=== PATIENT | male | born 1995 | race American Indian/Alaskan Native ===

== ENCOUNTER 2019-03-27 16:51 | Inpatient (IN) | payer SELFPAY ==
--- NOTE | 2019-03-27 18:27 | Emergency Department Report ---
Blank Doc - Documentation Documentation: Hit big toes a couple months ago and was healing up but healing . Subsequent i njuries . No fever fever of chils. pain 5/10 with touch and movement H/O sleep apnea Denies diabetes Bilateral great toes with redness, swelling, change in color with open wounds. TTP. OBESE CBC, Xray.
--- NOTE | 2019-03-27 19:01 | XRay Report ---
BILATERAL FEET 6 VIEWS INDICATION / CLINICAL INFORMATION: Injury with bilateral great toe pain, swelling and wounds. COMPARISON: None available. FINDINGS: BONES / JOINT(S): No acute fracture or subluxation. There is mild spurring at the insertion of the Ac hilles tendon on the calcaneus bilaterally. SOFT TISSUES: There is soft tissue swelling involving both great toes, right greater than left. I do not identify a radiopaque foreign body or soft tissue gas. ADDITIONAL FINDINGS: None. Signer Name: Christian Hoff MD Signed: 03/27/2019 6:56 PM Workstation Name: [id number]
[2019-03-27 19:40] LABS: Basophils # (Auto) 0.1 K/mm3 (0.0-0.1); Basophils % (Auto) 0.5 % (0.0-1.8); Eosinophils % (Auto) 0.3 % (0.0-4.3); Hematocrit 42.2 % (35.5-45.6); Hemoglobin 13.8 gm/dl (11.8-15.2); Lymphocytes # (Auto) 3.1 K/mm3 (1.2-5.4); Mean Corpuscular HGB Conc 33 % (32-34); Mean Corpuscular Volume 79 fl (84-94); Monocytes % (Auto) 7.6 % (0.0-7.3); Platelet Count 361 K/mm3 (140-440); Red Blood Count 5.34 M/mm3 (3.65-5.03); Red Cell Distribution Width 14.5 % (13.2-15.2)
[2019-03-27 19:52] LABS: BUN/Creatinine Ratio 14; Blood Urea Nitrogen 10 mg/dL (9-20); Calcium 9.8 mg/dL (8.4-10.2); Hemolysis Index 66
[2019-03-27] MEDS ORDERED: NACL 0.9% 1000 ML 1,000 ML IV ONE (20:55)
[2019-03-27] MEDS ORDERED: CLEOCIN 900 MG/50 mL 900 MG/50 ML BAG IV ONE (20:55)
--- NOTE | 2019-03-27 21:28 | Emergency Department Report ---
ED Extremity Problem HPI - General Chief complaint: Extremity Injury, Lower Stated complaint: TOE PAIN Time Seen by Provider: 03/27/19 18:20 Source: patient Mode of arrival: Ambulatory Limitations: No Limitations - History of Present Illness Initial comments: Patient is a 23-year-old male who presents the emergency room with complaints of wounds to his bilateral big toes that began 6 months ago. He states initially he had it against a wall and it healed some but then he has stubbed his big toes again and now they are not healing. he states there has been increased drainage and smell to the big toes. The mother states that they have been living in a hotel and he has been keeping them covered so she does not know how long its been this bad. He denies any fever. He has never had this before. Denies any numbness, weakness. He states he is able to move the toes. denies any past medical history or history of diabetes. He states his father had diabetes. He denies any allergies to medications. He does not have a primary care doctor. - Related Data Allergies Allergy/AdvReac Type Severity Reaction Status Date / Time No Known Allergies Allergy Verified 03/27/19 16:57 ED Review of Systems ROS: Stated complaint: TOE PAIN Other details as noted in HPI Comment: All other systems reviewed and negative ED Past Medical Hx - Past Medical History Previous Medical History?: No - Surgical History Past Surgical History?: Yes Additional Surgical History: tonsillectomy. adenoidectomy - Social History Smoking Status: Never Smoker ED Physical Exam - General Limitations: No Limitations General appearance: alert, in no apparent distress - Head Head exam: Present: atraumatic, normocephalic - ENT ENT exam: Present: mucous membranes moist - Respiratory Respiratory exam: Present: normal lung sounds bilaterally. Absent: respiratory distress, wheezes, rales, rhonchi, stridor, chest wall tenderness, accessory muscle use, decreased breath sounds, prolonged expiratory - Cardiovascular Cardiovascular Exam: Present: regular rate, normal rhythm, normal heart sounds. Absent: systolic murmur, diastolic murmur, rubs, gallop - Neurological Exam Neurological exam: Present: alert, oriented X3 - Psychiatric Psychiatric exam: Present: normal affect, normal mood - Skin Skin exam: Present: other (edema, erythema, nail damage with fluctuant areas and serous drainage from the bilateral big toes, pt has FROM of the toes and foot, neurovascularly intact) ED Course Vital Signs 03/27/19 03/27/19 03/27/19 18:22 21:47 23:56 Temperature 97.9 F 98.7 F 98.5 F Pulse Rate 101 H 96 H 82 Respiratory 18 16 22 Rate Blood Pressure 145/85 Blood Pressure 156/101 127/69 [Left] O2 Sat by Pulse 98 100 98 Oximetry - Consultations Consultation #1: 03/27/19 21:[address] Yepez, hospitalist who will admit pt to the hospital and will accept and resume care of the patient ED Medical Decision Making - Lab Data Result diagrams: 03/27/19 19:22 03/27/19 19:22 Lab Results 03/27/19 03/27/19 Range/Units 19:22 19:22 WBC 13.4 H (4.5-11.0) K/mm3 RBC 5.34 H (3.65-5.03) M/mm3 Hgb 13.8 (11.8-15.2) gm/dl Hct 42.2 (35.5-45.6) % MCV 79 L (84-94) fl MCH 26 L (28-32) pg MCHC 33 (32-34) % RDW 14.5 (13.2-15.2) % Plt Count 361 (140-440) K/mm3 Lymph % (Auto) 23.0 (13.4-35.0) % [place] % (Auto) 7.6 H (0.0-7.3) % Eos % (Auto) 0.3 (0.0-4.3) % Baso % (Auto) 0.5 (0.0-1.8) % Lymph # 3.1 (1.2-5.4) K/mm3 [place] # 1.0 H (0.0-0.8) K/mm3 Eos # 0.0 (0.0-0.4) K/mm3 Baso # 0.1 (0.0-0.1) K/mm3 Seg Neutrophils % 68.6 (40.0-70.0) % Seg Neutrophils # 9.2 H (1.8-7.7) K/mm3 Sodium 134 L (137-145) mmol/L Potassium 4.4 (3.6-5.0) mmol/L Chloride 99.5 (98-107) mmol/L Carbon Dioxide 23 (22-30) mmol/L Anion Gap 16 mmol/L BUN 10 (9-20) mg/dL Creatinine 0.7 L (0.8-1.5) mg/dL Estimated GFR > 60 ml/min BUN/Creatinine Ratio 14 % Glucose 299 H (75-100) mg/dL Calcium 9.8 (8.4-10.2) mg/dL - Radiology Data Radiology results: report reviewed Fluoro Time In Minutes: BILATERAL FEET 6 VIEWS INDICATION / CLINICAL INFORMATION: Injury with bilateral great toe pain, swelling and wounds. COMPARISON: None available. FINDINGS: BONES / JOINT(S): No acute fracture or subluxation. There is mild spurring at the insertion of the Achilles tendon on the calcaneus bilaterally. SOFT TISSUES: There is soft tissue swelling involving both great toes, right greater than left. I do not identify a radiopaque foreign body or soft tissue gas. ADDITIONAL FINDINGS: None. Signer Name: Christian Hoff MD Signed: 03/27/2019 6:56 PM Workstation Name: [id number] Transcribed By: RT Dictated By: Christian Hoff MD Electronically Authenticated By: Christian Hoff MD Signed Date/Time: 03/27/19 1191 - Medical Decision Making Patient is a 23-year-old male who presents the emergency room with complaints of wounds to his bilateral big toes that began 6 months ago. He states initially he had it against a wall and it healed some but then he has stubbed his big toes again and now they are not healing. he states there has been increased drainage and smell to the big toes. The mother states that they have been living in a hotel and he has been keeping them covered so she does not know how long its been this bad. He denies any fever. He has never had this before. D enies any numbness, weakness. He states he is able to move the toes. denies any past medical history or history of diabetes. He states his father had diabetes. He denies any allergies to medications. He does not have a primary care doctor. on exam: edema, erythema, nail damage with fluctuant areas and serous drainage from the bilateral big toes, pt has FROM of the toes and foot, neurovascularly intact. XR of the bilateral feet: No acute fracture or subluxation. There is mild spurring at the insertion of the Achilles tendon on the calcaneus bilaterally. SOFT TISSUES: There is soft tissue swelling involving both great toes, right greater than left. I do not identify a radiopaque foreign body or soft tissue gas. labs with WBC at 13.4 and blood glucose at 299. discussed case with Dr. Medina who evaluated pt at bedside and advised IVF, IV abx, and admission to the hospitalist. spoke to Dr. Yepez, hospitalist who accepted and resumed care of pt and will admit to the hospital for further evaluation and management. - Differential Diagnosis ulcer, diabetic foot wound Critical care attestation.: If time is entered above; I have spent that time in minutes in the direct care of this critically ill patient, excluding procedure time. ED Disposition Clinical Impression: Hyperglycemia Non-healing open wound of toe Qualifiers: Encounter type: initial encounter Qualified Code(s): S91.109A - Unspecified open wound of unspecified toe(s) without damage to nail, initial encounter Leukocytosis Qualifiers: Leukocytosis type: unspecified Qualified Code(s): D72.829 - Elevated white blood cell count, unspecified Disposition: DC09 OP ADMIT IP TO THIS HOSP Is pt being admited?: Yes Does the pt Need Aspirin: No Condition: Stable Time of Disposition: 21:46
[2019-03-27] MEDS ORDERED: SODIUM CHLORIDE FLUSH SYRINGE 10 ML IV PRN (22:44)
[2019-03-27] MEDS ORDERED: ZOFRAN IV PRN (22:44)
[2019-03-27] MEDS ORDERED: D50W (25GM) Syringe IV PRN ×2 (22:44→22:47)
[2019-03-27] MEDS ORDERED: PERCOCET 5/325 PO PRN (22:44)
[2019-03-27] MEDS ORDERED: TYLENOL PO PRN (22:44)
[2019-03-27] MEDS ORDERED: LANTUS SUB-Q ONE (22:46)
--- NOTE | 2019-03-27 22:48 | History and Physical Report ---
History of Present Illness Date of examination: 03/27/19 History of present illness: 23-year-old male with a history of obesity emergency room for evaluation of his great toes bilateral. Patient states that he hit the right great toe on the wall approximately 6 months ago. He's been using peroxide on the wound, rate is not healed. He subsequently hit the left great toe on the curb. Been having bloody discharge on the toes, increased swelling. Also complains of drinking a lot, urinating frequently and weight gain Review of systems Constitutional: no weight loss, chills, fever Ears, eyes, nose, mouth and throat: no nasal congestion, no nasal discharge, no sinus pressure, no vision change, no red eye. Neck: No neck pain or rigidity. Cardiovascular: no palpitations, chest pain Respiratory: no cough, shortness of breath Gastrointestinal: no hematochezia, abdominal pain Genitourinary : no frequency , no hematuria Musculoskeletal: no joint swelling or muscle ache Integumentary: no rash, no pruritis Neurological: no parathesias, no focal weakness Endocrine: no cold or heat intolerance Hematologic/Lymphatic: no easy bruising, no easy bleeding, no gland swelling Allergic/Immunologic: no urticaria, no angioedema. PAST MEDICAL HISTORY:obesity PAST SURGICAL HISTORY: None SOCIAL HISTORY: Denies alcohol, drugs, tobacco FAMILY HISTORY: Hypertension Medications and Allergies Allergies Allergy/AdvReac Type Severity Reaction Status Date / Time No Known Allergies Allergy Verified 03/27/19 16:57 Home Medications Medication Instructions Recorded Confirmed Last Taken Type Cephalexin [Keflex] 750 mg PO QID 14 Days #56 capsule 03/31/19 Unknown Rx glipiZIDE XL [Glucotrol Xl] 10 mg PO QDDIAB #60 tablet 03/31/19 Unknown Rx metFORMIN [Glucophage] 500 mg PO BIDDIAB #60 tablet 03/31/19 Unknown Rx oxyCODONE /ACETAMINOPHEN [Percocet 1 tab PO Q4H PRN #30 tablet 03/31/19 Unknown Rx 5/325 mg] Active Meds: Active Medications Acetaminophen (Tylenol) 650 mg PO Q4H PRN PRN Reason: Pain MILD(1-3)/Fever >100.5/CAMPOS Dextrose (D50w (25gm) Syringe) 50 ml IV PRN PRN PRN Reason: Hypoglycemia Enoxaparin Sodium (Lovenox) 30 mg SUB-Q QDAY PAMELA Sodium Chloride (Nacl 0.9% 1000 Ml) 1,000 mls @ 100 mls/hr IV DIRECT PAMELA Insulin Glargine (Lantus) 6 units SUB-Q ONCE ONE Stop: 03/27/19 22:47 Ondansetron HCl (Zofran) 4 mg IV Q8H PRN PRN Reason: Nausea And Vomiting Oxycodone/Acetaminophen (Percocet 5/325) 1 tab PO Q4H PRN PRN Reason: Pain, Moderate (4-6) Sodium Chloride (Sodium Chloride Flush Syringe 10 Ml) 10 ml IV BID PAMELA Sodium Chloride (Sodium Chloride Flush Syringe 10 Ml) 10 ml IV PRN PRN PRN Reason: LINE FLUSH Exam - Physical Exam Narrative exam: General Apperance: The patient lying in bed, breathing comfortable HEENT: Normocephalic, atraumatic. Pupils equally round and reactive to light, EOMI, no sclericterus or JVD or thyromegaly or nodule. , no carotid bruit, mucous membranes moist, no exudate or erythema Heart: S1-S2, regular is rhythm Lungs: Clear to auscultation bilaterally, breathing comfortable Abdomen: Positive bowel sounds, soft, nontender, nondistended, no organomegaly Extremities: Bilateral great toe diffusely swollen, nailbed is eroded, bloody discharge, tender to touch, positive erythema,No edema cyanosis clubbing Skin: no rash, nodule, warm and dry Neuro: cranial nerves 2-12 intact, speech is fluent, motor/sensory intact - Constitutional Vitals: Temp Pulse Resp BP Pulse Ox 98.7 F 96 H 16 156/101 100 03/27/19 21:47 03/27/19 21:47 03/27/19 21:47 03/27/19 21:47 03/27/19 21:47 Results - Labs CBC & Chem 7: 03/30/19 00:27 03/28/19 02:09 Labs: Abnormal lab results 03/27/19 03/27/19 Range/Units 19:22 19:22 WBC 13.4 H (4.5-11.0) K/mm3 RBC 5.34 H (3.65-5.03) M/mm3 MCV 79 L (84-94) fl MCH 26 L (28-32) pg [place] % (Auto) 7.6 H (0.0-7.3) % [place] # 1.0 H (0.0-0.8) K/mm3 Seg Neutrophils # 9.2 H (1.8-7.7) K/mm3 Sodium 134 L (137-145) mmol/L Creatinine 0.7 L (0.8-1.5) mg/dL Glucose 299 H (75-100) mg/dL Assessment and Plan xray foot reviewed Assessment Diabetic foot infection New-onset diabetes Obesity Plan Admit medicine Start IV Vanco, obtain blood culture, wound culture Check 6fingersticks initiate insulin sliding scale Consult infectious disease, dietitian Start Percocet, DVT prophylaxis
[2019-03-27] MEDS ORDERED: VANCOMYCIN/NS 1 GM/250 ML 1 GM/250 ML BAG IV SCH (23:01)
[2019-03-28] MEDS: NACL 0.9% 1000 ML 1,000 ML IV SCH ×2 (01:51→18:55)
[2019-03-28] MEDS: VANCOMYCIN 2,000 MG in NACL 0.9% 500 ML 500 ML IV SCH ×2 (01:51→13:03)
[2019-03-28 02:28] LABS: Basophils # (Auto) 0.1 K/mm3 (0.0-0.1); Basophils % (Auto) 0.6 % (0.0-1.8); Eosinophils % (Auto) 0.4 % (0.0-4.3); Hematocrit 40.9 % (35.5-45.6); Hemoglobin 13.2 gm/dl (11.8-15.2); Lymphocytes % (Auto) 26.1 % (13.4-35.0); Mean Corpuscular HGB Conc 32 % (32-34); Mean Corpuscular Volume 80 fl (84-94); Monocytes # (Auto) 0.9 K/mm3 (0.0-0.8); Monocytes % (Auto) 8.1 % (0.0-7.3); Platelet Count 313 K/mm3 (140-440); Red Blood Count 5.11 M/mm3 (3.65-5.03); Red Cell Distribution Width 14.3 % (13.2-15.2)
[2019-03-28 02:48] LABS: BUN/Creatinine Ratio 14; Blood Urea Nitrogen 10 mg/dL (9-20); Calcium 9.3 mg/dL (8.4-10.2); Hemolysis Index 11
[2019-03-28] MEDS: HumaLOG SUB-Q SCH ×4 (08:12→21:44)
[2019-03-28] MEDS: LOVENOX SUB-Q SCH (09:20)
[2019-03-28] MEDS ORDERED: LOVENOX SUB-Q SCH (10:00)
[2019-03-28] MEDS: SODIUM CHLORIDE FLUSH SYRINGE 10 ML IV SCH ×2 (12:59→21:44)
--- NOTE | 2019-03-28 13:13 | Progress Note ---
Assessment and Plan Assessment and plan: Diabetic toe infection. Cont IV abx. ID consulted. Wound care New-onset diabetes. Nutrition consult. Accucheks, SSRI and lantus Obesity. Pt will be counseled on diet and exercise prior to discharge History Interval history: year-old male with a history of obesity emergency room for evaluation of his great toes bilateral. Patient states that he hit the right great toe on the wall approximately 6 months ago. He's been using peroxide on the wound, rate is not healed. He subsequently hit the left great toe on the curb. Been having bloody discharge on the toes, increased swelling. Pt also c/o polyuria and polydypsia. Hospitalist Physical - Constitutional Vitals: Temp Pulse Resp BP Pulse Ox 98.5 F 85 22 114/39 97 03/28/19 11:44 03/28/19 11:44 03/28/19 11:44 03/28/19 11:44 03/28/19 11:44 General appearance: Present: no acute distress, well-nourished - EENT Eyes: Present: PERRL, EOM intact ENT: hearing intact, clear oral mucosa, dentition normal - Neck Neck: Present: supple, normal ROM - Respiratory Respiratory effort: normal Respiratory: bilateral: CTA - Cardiovascular Rhythm: regular Heart Sounds: Present: S1 & S2. Absent: gallop, rub - Extremities Extremities: no ischemia, No edema, Full ROM - Abdominal General gastrointestinal: soft, non-tender, non-distended, normal bowel sounds - Integumentary Integumentary: Present: clear, warm, dry - Neurologic Neurologic: CNII-XII intact, moves all extremities Results - Labs CBC & Chem 7: 03/28/19 02:09 03/28/19 02:09 Labs: Laboratory Last Values WBC 11.6 K/mm3 (4.5-11.0) H 03/28/19 02:09 RBC 5.11 M/mm3 (3.65-5.03) H 03/28/19 02:09 Hgb 13.2 gm/dl (11.8-15.2) 03/28/19 02:09 Hct 40.9 % (35.5-45.6) 03/28/19 02:09 MCV 80 fl (84-94) L 03/28/19 02:09 MCH 26 pg (28-32) L 03/28/19 02:09 MCHC 32 % (32-34) 03/28/19 02:09 RDW 14.3 % (13.2-15.2) 03/28/19 02:09 Plt Count 313 K/mm3 (140-440) 03/28/19 02:09 Lymph % (Auto) 26.1 % (13.4-35.0) 03/28/19 02:09 [place] % (Auto) 8.1 % (0.0-7.3) H 03/28/19 02:09 Eos % (Auto) 0.4 % (0.0-4.3) 03/28/19 02:09 Baso % (Auto) 0.6 % (0.0-1.8) 03/28/19 02:09 Lymph # 3.0 K/mm3 (1.2-5.4) 03/28/19 02:09 [place] # 0.9 K/mm3 (0.0-0.8) H 03/28/19 02:09 Eos # 0.0 K/mm3 (0.0-0.4) 03/28/19 02:09 Baso # 0.1 K/mm3 (0.0-0.1) 03/28/19 02:09 Seg Neutrophils % 64.8 % (40.0-70.0) 03/28/19 02:09 Seg Neutrophils # 7.5 K/mm3 (1.8-7.7) 03/28/19 02:09 Sodium 136 mmol/L (137-145) L 03/28/19 02:09 Potassium 3.9 mmol/L (3.6-5.0) 03/28/19 02:09 Chloride 99.8 mmol/L (98-107) 03/28/19 02:09 Carbon Dioxide 24 mmol/L (22-30) 03/28/19 02:09 16 mmol/L 03/28/19 02:09 BUN 10 mg/dL (9-20) 03/28/19 02:09 0.7 mg/dL (0.8-1.5) L 03/28/19 02:09 Estimated GFR > 60 ml/min 03/28/19 02:09 14 % 03/28/19 02:09 Glucose 274 mg/dL (75-100) H 03/28/19 02:09 POC Glucose 258 (70-105) H 03/28/19 11:48 10.8 % (4-6) H 03/28/19 02:09 Calcium 9.3 mg/dL (8.4-10.2) 03/28/19 02:09 Active Medications - Current Medications Current Medications: Generic Name Dose Route Start Last Admin Trade Name Freq PRN Reason Stop Dose Admin Acetaminophen 650 mg 03/27/19 22:44 Tylenol PO Q4H PRN Pain MILD(1-3)/Fever >100.5/CAMPOS Dextrose 50 ml 03/27/19 22:44 D50w (25gm) Syringe IV PRN PRN Hypoglycemia Enoxaparin Sodium 40 mg 03/28/19 10:00 03/28/19 09:20 Lovenox SUB-Q 40 mg QDAY@1000 PAMELA Administration Sodium Chloride 1,000 mls @ 100 mls/hr 03/27/19 23:00 03/28/19 01:51 Nacl 0.9% 1000 Ml IV 100 mls/hr DIRECT PAMELA Administration Vancomycin HCl 2,000 mg/ 540 mls @ 250 mls/hr 03/28/19 00:00 03/28/19 13:03 Sodium Chloride IV 250 mls/hr Q12H PAMELA Administration Insulin Human Lispro 0 unit 03/28/19 07:30 03/28/19 12:51 Humalog SUB-Q 4 unit ACHS PAMELA Administration Protocol Ondansetron HCl 4 mg 03/27/19 22:44 Zofran IV Q8H PRN Nausea And Vomiting Oxycodone/Acetaminophen 1 tab 03/27/19 22:44 Percocet 5/325 PO Q4H PRN Pain, Moderate (4-6) Sodium Chloride 10 ml 03/28/19 10:00 03/28/19 12:59 Sodium Chloride Flush Syringe 10 Ml IV 10 ml BID PAMELA Administration Sodium Chloride 10 ml 03/27/19 22:44 Sodium Chloride Flush Syringe 10 Ml IV PRN PRN LINE FLUSH
[2019-03-29] MEDS: VANCOMYCIN 2,000 MG in NACL 0.9% 500 ML 500 ML IV SCH ×2 (01:20→17:22)
[2019-03-29] MEDS: NACL 0.9% 1000 ML 1,000 ML IV SCH ×2 (08:46→17:30)
[2019-03-29] MEDS: HumaLOG SUB-Q SCH ×4 (08:52→22:22)
[2019-03-29] MEDS: LOVENOX SUB-Q SCH (09:30)
[2019-03-29] MEDS: SODIUM CHLORIDE FLUSH SYRINGE 10 ML IV SCH ×2 (09:30→21:07)
--- NOTE | 2019-03-29 09:49 | Consultation ---
History of Present Illness - Reason for Consult Consult date: 03/29/19 Diabetic foot infection Requesting physician: GEOVANY LOPEZ - History of Present Illness This patient is a 23-year-old male with no significant past medical history that presents to the ED on 03/27/19 with complaints of wounds to his bilateral great toes that began 6 months ago. He states that he initially hit the right great toes on the wall 6 months ago. He has been using peroxide on the wound, however it has not healed. He subsequently hit the left great toe on the curb and has been having bloody discharge on the toe with increased swelling. Upon further evaluation, he complains of polyuria, polydypsia and weight gain.. On admission WBC 11.6, Creatinine 0.7, HbA1C 10.8,Temperature 97.9, HR 101, BP 145/85. Bilateral foot xray shows no acute fracture of subluxation. Mild spuring at the insertion of the achilles tendon on the calcaneus bilaterally. Soft tissue s welling involving both great toes, right greater than the left. Blood cultures show no growth thus far. General: no fever, chills, nightsweats, unintentional weight change, or change in appetite Cutaneous: no rash, pruritus Head: no headaches or injury Eyes: no changes in vision, eye pain, double vision Ears: no ear pain, ear discharge, ringing or hearing loss Nose: no nose bleeding, stuffiness Mouth & throat: no bleeding gums, no horseness, no dental problems, or swollen glands Neck: no pain, node enlargement/lumps, tyroid enlargement or tenderness Respiratory: no cough, wheezing, sputum, hemoptysis, pleuritic chest pain Cardiovascular: no chest pain, leg edema, cyanosis, HERNANDEZ, orthopnea Musculoskeletal: wounds to bilateral great toes, right toe with sanguineous drainage, left toe serosanguinous drainage.+dressing. Gastrointestinal: no nausea, vomiting, hematemesis, diarrhea, constipation, melena, bright red blood in stools, fecal incontinence, jaundice Genitourinary/Reproductive: + frequent urination, no dysuria, hematuria, incontinence Neurogical: no seizures, no headaches, no weakness, no paresthesias, no loss of speech or vision; no memory loss, no vertigo, no tremors, no numbness Psychiatric: stable mood; no excessive anxiety, sadness or moodiness Medications and Allergies Allergies Allergy/AdvReac Type Severity Reaction Status Date / Time No Known Allergies Allergy Verified 03/27/19 16:57 Active Meds: Active Medications Acetaminophen (Tylenol) 650 mg PO Q4H PRN PRN Reason: Pain MILD(1-3)/Fever >100.5/CAMPOS Dextrose (D50w (25gm) Syringe) 50 ml IV PRN PRN PRN Reason: Hypoglycemia Enoxaparin Sodium (Lovenox) 40 mg SUB-Q QDAY@1000 [facility] Last Admin: 03/29/19 09:30 Dose: 40 mg Documented by: Sodium Chloride (Nacl 0.9% 1000 Ml) 1,000 mls @ 100 mls/hr IV DIRECT [facility] Last Admin: 03/29/19 08:46 Dose: 100 mls/hr Documented by: Vancomycin HCl 2,000 mg/ (Sodium Chloride) 540 mls @ 250 mls/hr IV Q12H [facility] Last Admin: 03/29/19 01:20 Dose: 250 mls/hr Documented by: Insulin Human Lispro (Humalog) 0 unit SUB-Q ACHS [facility]; Protocol Last Admin: 03/29/19 08:52 Dose: 2 unit Documented by: Ondansetron HCl (Zofran) 4 mg IV Q8H PRN PRN Reason: Nausea And Vomiting Oxycodone/Acetaminophen (Percocet 5/325) 1 tab PO Q4H PRN PRN Reason: Pain, Moderate (4-6) Sodium Chloride (Sodium Chloride Flush Syringe 10 Ml) 10 ml IV BID [facility] Last Admin: 03/29/19 09:30 Dose: 10 ml Documented by: Sodium Chloride (Sodium Chloride Flush Syringe 10 Ml) 10 ml IV PRN PRN PRN Reason: LINE FLUSH Physical Examination - Physical Exam Narrative exam: Constitutional: Alert, cooperative. No acute distress Head, Ears, Nose: Normocephalic, atraumatic. External ears, nose normal Eyes: Conjunctivae/corneas clear. No icterus. No ptosis. Neck: Supple, no meningeal signs Oral: dentition good. No thrush Cardiovascular: S1, S2 normal. Respiratory: Good air entry, clear to auscultation bilaterally GI: Soft, non-tender; bowel sounds normal. No peritoneal signs Musculoskeletal: wounds to bilateral great toes, right toe with snaguionous drainage, left toe serosanguinous drain. +dressing Skin: same as above. Hem/Lymphatic: No palpable cervical or supraclavicular nodes. No lymphangitis Psych: Mood ok. Affect normal Neurological: Awake, alert, oriented. - Constitutional Vitals: Vital Signs Temp Pulse Resp BP Pulse Ox 98.4 F 79 20 147/73 96 03/29/19 06:13 03/29/19 06:13 03/29/19 06:13 03/29/19 06:13 03/29/19 06:13 Temperature -Last 24 Hours Temperature 98.4 F Temperature 98.6 F Temperature 98.5 F Results - Labs CBC & Chem 7: 03/28/19 02:09 03/28/19 02:09 Labs: Abnormal lab results 03/28/19 03/28/19 03/28/19 Range/Units 08:01 11:48 17:25 POC Glucose 206 H 258 H 278 H (70-105) 03/28/19 03/29/19 Range/Units 21:39 07:41 POC Glucose 295 H 170 H (70-105) Assessment and Plan Cultures: 03/28/19 Blood: no growth to date A/P: 23-year-old male with no significant past medical history [facility] presents to the ED on 03/27/19 with complaints of wounds to his bilateral great toes that began 6 months ago. He states that he initially hit the right great toes on the wall 6 months ago. He has been using peroxide on the wound, however it has not healed. He subsequently hit the left great toe on the curb and has been having bloody discharge on the toe with increased swelling. Upon further evaluation, he complains of polyuria, polydypsia and weight gain. 1. Leukocytois : on admission. Etiology most likely diabetic bilaterall foot infection.. No fevers. Blood cultures show no growth thus far. U/A not done. Currently being treated with Vancomycin. Add Cefepime and Flagyl. 2. Diabetic bilateral foot infection: Bilateral foot xray shows Mild spuring at the insertion of the Achilles tendon on the calcaneus bilaterally. Soft tissue swelling involving both great toes, right greater than the left . Will order CRP, ESR. Obtain wound care consult and wound culture. Order MRI to evaluate for osteomyelitis 3. Newly diagnosed type 2 diabetic: on admission HbA1C 10.8. Recommend tight glycemioc control. 4. Morbid obesity: Recommendations: -Continue Vancomycin PK dosing -Start Cefepime 2 gms IV every 8 hours -Start Flagyl 500 mg IV every 8 hours -Order CRP, ESR, CBC for tomorrow -Order MRI to evaluate osteomyelitis -follow up blood cultures -Wound care consult -Obtain wound cultures [facility] M: [phone] O:[phone]
--- NOTE | 2019-03-29 11:49 | Progress Note ---
Assessment and Plan Assessment and plan: 23-year-old man with type 2 diabetes who presents with wounds to bilateral toes. He states that he thinks/stubbed his big toes multiple times, now has increased drainage and malodorous. The patient has not had a primary care doctor in a long time Diabetic foot infection/bilateral Infectious disease consult appreciated, continue antibiotics, follow-up bilateral duplex scan of the lower extremities, follow-up MRI to evaluate for osteomyelitis, follow-up cultures new onset Type 2 diabetes Hemoglobin A1c 10.8, optimize meds Morbid obesity Patient will benefit from weight loss program and acute issues have been managed Preventative health counseling performed for greater than 17 minutes DVT prophylaxis with Lovenox History Interval history: Continues to complain of pain from both of his big toes Review of systems Constitutional: No fevers, no malaise, no joint pains CVS: No chest pain, no orthopnea, no dyspnea on exertion, no pedal edema GI: No abdominal pain, no diarrhea, no vomiting, no constipation Respiratory: no wheezing, no coughing Hospitalist Physical - Physical exam Narrative exam: General.: Appears well, no distress, nontoxic HEENT: Moist mucous membranes, extraocular muscles intact, no lymphadenopathy Neck: supple Cardiac: S1-S2 heard Lungs: clear to auscultation bilaterally Abdomen: soft , nontender, nondistended, bowel sounds positive Extremities: Bilateral big to ulcers, with foul-smelling discharge Skin: no rash or lesions Neurologic: no gross focal deficits Psych: calm, and cooperative - Constitutional Vitals: Temp Pulse Resp BP Pulse Ox 98.4 F 79 20 147/73 96 03/29/19 06:13 03/29/19 06:13 03/29/19 06:13 03/29/19 06:13 03/29/19 06:13 General appearance: Present: no acute distress, well-nourished Results - Labs CBC & Chem 7: 03/28/19 02:09 03/28/19 02:09 Labs: Laboratory Last Values WBC 11.6 K/mm3 (4.5-11.0) H 03/28/19 02:09 RBC 5.11 M/mm3 (3.65-5.03) H 03/28/19 02:09 Hgb 13.2 gm/dl (11.8-15.2) 03/28/19 02:09 Hct 40.9 % (35.5-45.6) 03/28/19 02:09 MCV 80 fl (84-94) L 03/28/19 02:09 MCH 26 pg (28-32) L 03/28/19 02:09 MCHC 32 % (32-34) 03/28/19 02:09 RDW 14.3 % (13.2-15.2) 03/28/19 02:09 Plt Count 313 K/mm3 (140-440) 03/28/19 02:09 Lymph % (Auto) 26.1 % (13.4-35.0) 03/28/19 02:09 [place] % (Auto) 8.1 % (0.0-7.3) H 03/28/19 02:09 Eos % (Auto) 0.4 % (0.0-4.3) 03/28/19 02:09 Baso % (Auto) 0.6 % (0.0-1.8) 03/28/19 02:09 Lymph # 3.0 K/mm3 (1.2-5.4) 03/28/19 02:09 [place] # 0.9 K/mm3 (0.0-0.8) H 03/28/19 02:09 Eos # 0.0 K/mm3 (0.0-0.4) 03/28/19 02:09 Baso # 0.1 K/mm3 (0.0-0.1) 03/28/19 02:09 Seg Neutrophils % 64.8 % (40.0-70.0) 03/28/19 02:09 Seg Neutrophils # 7.5 K/mm3 (1.8-7.7) 03/28/19 02:09 Sodium 136 mmol/L (137-145) L 03/28/19 02:09 Potassium 3.9 mmol/L (3.6-5.0) 03/28/19 02:09 Chloride 99.8 mmol/L (98-107) 03/28/19 02:09 Carbon Dioxide 24 mmol/L (22-30) 03/28/19 02:09 16 mmol/L 03/28/19 02:09 BUN 10 mg/dL (9-20) 03/28/19 02:09 0.7 mg/dL (0.8-1.5) L 03/28/19 02:09 Estimated GFR > 60 ml/min 03/28/19 02:09 14 % 03/28/19 02:09 Glucose 274 mg/dL (75-100) H 03/28/19 02:09 POC Glucose 170 (70-105) H 03/29/19 07:41 10.8 % (4-6) H 03/28/19 02:09 Calcium 9.3 mg/dL (8.4-10.2) 03/28/19 02:09 Active Medications - Current Medications Current Medications: Generic Name Dose Route Start Last Admin Trade Name Freq PRN Reason Stop Dose Admin Acetaminophen 650 mg 03/27/19 22:44 Tylenol PO Q4H PRN Pain MILD(1-3)/Fever >100.5/CAMPOS Dextrose 50 ml 03/27/19 22:44 D50w (25gm) Syringe IV PRN PRN Hypoglycemia Enoxaparin Sodium 40 mg 03/28/19 10:00 03/29/19 09:30 Lovenox SUB-Q 40 mg QDAY@1000 PAMELA Administration Glipizide 10 mg 03/29/19 12:00 Glucotrol Xl PO QDDIAB PAMELA Sodium Chloride 1,000 mls @ 100 mls/hr 03/27/19 23:00 03/29/19 08:46 Nacl 0.9% 1000 Ml IV 100 mls/hr DIRECT PAMELA Administration Vancomycin HCl 2,000 mg/ 540 mls @ 250 mls/hr 03/28/19 00:00 03/29/19 01:20 Sodium Chloride IV 250 mls/hr Q12H PAMELA Administration Insulin Human Lispro 0 unit 03/28/19 07:30 03/29/19 08:52 Humalog SUB-Q 2 unit ACHS PAMELA Administration Protocol Metformin HCl 500 mg 03/29/19 17:00 Glucophage PO BIDDIAB PAMELA Ondansetron HCl 4 mg 03/27/19 22:44 Zofran IV Q8H PRN Nausea And Vomiting Oxycodone/Acetaminophen 1 tab 03/27/19 22:44 Percocet 5/325 PO Q4H PRN Pain, Moderate (4-6) Sodium Chloride 10 ml 03/28/19 10:00 03/29/19 09:30 Sodium Chloride Flush Syringe 10 Ml IV 10 ml BID PAMELA Administration Sodium Chloride 10 ml 03/27/19 22:44 Sodium Chloride Flush Syringe 10 Ml IV PRN PRN LINE FLUSH Nutrition/Malnutrition Assess - Dietary Evaluation Nutrition/Malnutrition Findings: Nutrition Notes Start: 03/28/19 14:15 Freq: Status: Active Protocol: Document 03/28/19 14:15 RM (Rec: 03/28/19 14:23 RM [email or web address]) Nutrition Notes Need for Assessment generated from: MD Order,Education Initial or Follow up Assessment Current Diagnosis Diabetes Other Pertinent Diagnosis Diabetic foot infection, new onset DM Current Diet Consisent CHO Labs/Tests A1c 10.8 Pertinent Medications Reviewed Height 5 ft 8 in Weight 148.5 kg [place] Body Weight (kg) 70.00 BMI 49.8 Subjective/Other Information Consulted for DM diet education. Pt stated that his appetite is poor but that he knows he needs to eat so he eats all of his meals. Pt stated he had not been previously educated. Reviewed DM diet education. Gave handout. Burn Absent Trauma Absent #2 Nutrition Diagnosis Increased nutrient needs ( specify in comment below) Comments: glutamine, arginine Etiology wound healing As Evidenced by Signs and Symptoms diabetic foot infection #1 Nutrition Diagnosis Food and nutrition-related knowledge deficit Etiology lack of prior education As Evidenced by Signs and Symptoms no prior knowledge of need for food and nutrition recommendations Is patient on ventilator? No Is Patient Ambulatory and/or Out of Bed Yes REE-([facility]-ambulatory/OOB) [ 3190.850 NUTR.MSJOOB] Kcal/Kg value to use for calculation 18 Approximate Energy Requirements Using 2673 kcal/Kg Calculation Used for Recommendations Kcal/kg Additional Notes Protein Needs:84-105g (1.2-1. 5g/kg IBW) Fluid Needs: 1 ml/kcal Nutrition Intervention Change Diet Order: continue current Add Supplement/Snack (indicate name/kcal Juan Jose BID /protein ) Provides kCal: 190 Provides Protein (gm) 5 Teaching Recipient Patient Learning Readiness Good Teaching Methods Discussion,Handout Response to Teaching Verbalize understanding Education Handouts Provided Carbohydrate counting for people with diabetes Barriers to Learning No Barriers RD phone number provided Yes Patient aware of follow up options Yes Goal #1 Juan Jose tolerance Anticipated Discharge Needs: Consistent CHO Follow-Up By: 03/31/19 Additional Comments Follow Juan Jose tolerance/intake
[2019-03-29] MEDS: GLUCOTROL XL PO SCH (12:53)
[2019-03-29] MEDS: GLUCOPHAGE PO SCH (17:22)
[2019-03-29] MEDS: MAXIPIME/NS 2 GM/100 ML 2 GM/100 ML BAG IV SCH (21:07)
[2019-03-29] MEDS: FLAGYL 500 MG/100 ML 500 MG/100 ML BAG IV SCH (22:15)
[2019-03-30 01:10] LABS: Basophils % (Auto) 0.4 % (0.0-1.8); Eosinophils # (Auto) 0.1 K/mm3 (0.0-0.4); Hemoglobin 12.7 gm/dl (11.8-15.2); Lymphocytes % (Auto) 25.4 % (13.4-35.0); Mean Corpuscular HGB Conc 33 % (32-34); Mean Corpuscular Volume 79 fl (84-94); Monocytes % (Auto) 8.2 % (0.0-7.3); Platelet Count 317 K/mm3 (140-440); Red Blood Count 4.91 M/mm3 (3.65-5.03); Red Cell Distribution Width 14.6 % (13.2-15.2)
[2019-03-30 01:38] LABS: Erythrocyte Sedimentation Rate 15 mm/Hr (0-20)
[2019-03-30] MEDS: VANCOMYCIN 2,000 MG in NACL 0.9% 500 ML 500 ML IV SCH ×2 (05:23→17:43)
[2019-03-30] MEDS: MAXIPIME/NS 2 GM/100 ML 2 GM/100 ML BAG IV SCH ×3 (05:23→21:38)
[2019-03-30] MEDS: FLAGYL 500 MG/100 ML 500 MG/100 ML BAG IV SCH ×3 (05:28→21:38)
--- NOTE | 2019-03-30 08:52 | Progress Note ---
Assessment and Plan Cultures: 03/28/19 Blood: no growth 03/29/19 Right Great toe: Mixed culture GNR, Staph aureus 03/29/19 Left Great toe : Mixed culture, GNR, Staph aureus A/P: 23-year-old male with no significant past medical history that presents to the ED on 03/27/19 with complaints of wounds to his bilateral great toes that began 6 months ago. He states that he initially hit the right great toes on the wall 6 months ago. He has been using peroxide on the wound, however it has not healed. He subsequently hit the left great toe on the curb and has been having bloody discharge on the toe with increased swelling. Upon further evaluation, he complains of polyuria, polydypsia and weight gain. 1. Leukocytois : Continuing. Etiology most likely diabetic bilateral foot infection.. No fevers. Blood cultures show no growth thus far. U/A not done.Will do broad spectrum antibiotics given chronicity of wounds. ESR 15. Currently being treated with Vancomycin, Cefepime and Flagyl . 2. Diabetic bilateral foot infection: Bilateral foot xray shows Mild spuring at the insertion of the Achilles tendon on the calcaneus bilaterally. Soft tissue swelling involving both great toes, right greater than the left . MRI right foot shows Subcutaneous cellulitis in the distal aspect of the great toe. No evidence of fluid collection or osteomyelitis. MRI left foot shows Mild subcutaneous cellulitis in the distal great toe without underlying osteomyelitis or focal fluid collection. Right/Left wound culture GNR, Staph aureus. Follow up for ID and susceptibility. 3. Newly diagnosed Type 2 DM: Educated about newly diagnosed diabetes. On admission HbA1C 10.8. Recommend tight glycemic control. 4. Morbid obesity: Recommendations: -Continue Vancomycin PK dosing, D3 -Continue Cefepime 2 gms IV every 8 hours, D2 -Continue Flagyl 500 mg IV every 8 hours, D2 -follow-up CRP -follow-up wound cultures for ID and susceptibility -continue wound care [facility] M: [id number] O:[phone] Subjective Date of service: 03/30/19 Interval history: Patient seen and examined. Reports no right/left toe pain. No fevers. Objective - Exam Narrative Exam: Constitutional: Alert, cooperative. No acute distress Head, Ears, Nose: Normocephalic, atraumatic. External ears, nose normal Eyes: Conjunctivae/corneas clear. No icterus. No ptosis. Neck: Supple, no meningeal signs Oral: dentition good. No thrush Cardiovascular: S1, S2 normal. Respiratory: Good air entry, clear to auscultation bilaterally GI: Soft, non-tender; bowel sounds normal. No peritoneal signs Musculoskeletal: wounds to bilateral great toes, +dressing. C/D/I Skin: same as above. Hem/Lymphatic: No palpable cervical or supraclavicular nodes. No lymphangitis Psych: Mood ok. Affect normal Neurological: Awake, alert, oriented. - Constitutional Vitals: Vital Signs Temp Pulse Resp BP Pulse Ox 98.2 F 84 20 119/74 98 03/30/19 06:30 03/29/19 22:57 03/30/19 06:30 03/30/19 06:30 03/29/19 22:57 Temperature -Last 24 Hours Temperature 98.2 F Temperature 98.2 F Temperature 98.4 F Temperature 98.7 F - Labs CBC & Chem 7: 03/30/19 00:27 03/28/19 02:09 Labs: Abnormal lab results 03/29/19 03/29/19 03/29/19 Range/Units 11:59 16:24 22:05 WBC (4.5-11.0) K/mm3 MCV (84-94) fl MCH (28-32) pg [place] % (Auto) (0.0-7.3) % [place] # (0.0-0.8) K/mm3 POC Glucose 243 H 253 H 216 H (70-105) 03/30/19 03/30/19 Range/Units 00:27 08:10 WBC 11.8 H (4.5-11.0) K/mm3 MCV 79 L (84-94) fl MCH 26 L (28-32) pg [place] % (Auto) 8.2 H (0.0-7.3) % [place] # 1.0 H (0.0-0.8) K/mm3 POC Glucose 138 H (70-105)
[2019-03-30] MEDS: GLUCOPHAGE PO SCH ×2 (09:19→17:26)
[2019-03-30] MEDS: GLUCOTROL XL PO SCH (09:19)
[2019-03-30] MEDS: HumaLOG SUB-Q SCH ×4 (09:20→23:56)
[2019-03-30] MEDS: LOVENOX SUB-Q SCH (13:14)
[2019-03-30] MEDS: SODIUM CHLORIDE FLUSH SYRINGE 10 ML IV SCH ×2 (13:14→21:38)
--- NOTE | 2019-03-30 13:17 | Magnetic Resonance Report ---
MRI of the right foot without and with contrast. INDICATION: Soft tissue infection in the toes. Evaluation for osteomyelitis.. TECHNIQUE: Multiplanar, multisequence MR images were obtained of the right foot without and with IV contrast. COMPARISON: None available. FINDINGS: There is subcutaneous edema in the distal aspect of the great toe without discrete well-defined fluid collection. No definite foreign bodies are identified. The underlying bone marrow signal appears nor mal. No additional focal soft tissue edema is identified. Remaining imaged muscles and tendons in the toe appear unremarkable. Remaining bone marrow signal is normal. IMPRESSION: 1. Subcutaneous cellulitis in the distal aspect of the great toe in the right foot without focal flui d collection or evidence of osteomyelitis. Signer Name: Balaji Cormier MD Signed: 03/30/2019 1:13 PM Workstation Name: [id number]
--- NOTE | 2019-03-30 13:20 | Magnetic Resonance Report ---
MRI of the left foot without and with IV contrast INDICATION: Left foot soft tissue infection, evaluation for osteomyelitis. TECHNIQUE: Multiplanar, multisequence MR images were obtained. COMPARISON: Radiographs on 03/27/2019. FINDINGS: There is mild subjacent edema in the distal aspect of the great toe suggesting cellulitis. No focal w ell-defined fluid collection is identified. No foreign bodies are identified. Underlying bone marrow signal is normal. Remaining bone marrow signal is normal and the foot. Remaining imaged muscles and tendons in the foot appear normal. There is no focal fluid collection. IMPRESSION: 1. Mild subcutaneous cellulitis in the distal great toe without underlying osteomyelitis or focal flu id collection. Signer Name: Balaji Cormier MD Signed: 03/30/2019 1:16 PM Workstation Name: [id number]
--- NOTE | 2019-03-30 15:25 | Progress Note ---
Assessment and Plan Assessment and plan: 23-year-old man with type 2 diabetes who presents with wounds to bilateral toes. He states that he thinks/stubbed his big toes multiple times, now has increased drainage and malodorous. The patient has not had a primary care doctor in a long time Diabetic foot infection/bilateral Infectious disease consult appreciated, continue antibiotics, follow-up bilateral duplex scan of the lower extremities, MRI neg for osteomyelitis, follow-up cultures new onset Type 2 diabetes Hemoglobin A1c 10.8, optimize meds Morbid obesity Patient will benefit from weight loss program and acute issues have been managed Preventative health counseling performed for greater than 17 minutes DVT prophylaxis with Lovenox History Interval history: Continues to complain of pain from both of his big toes Review of systems Constitutional: No fevers, no malaise, no joint pains CVS: No chest pain, no orthopnea, no dyspnea on exertion, no pedal edema GI: No abdominal pain, no diarrhea, no vomiting, no constipation Respiratory: no wheezing, no coughing Hospitalist Physical - Physical exam Narrative exam: General.: Appears well, no distress, nontoxic HEENT: Moist mucous membranes, extraocular muscles intact, no lymphadenopathy Neck: supple Cardiac: S1-S2 heard Lungs: clear to auscultation bilaterally Abdomen: soft , nontender, nondistended, bowel sounds positive Extremities: Bilateral big to ulcers, with foul-smelling discharge Skin: no rash or lesions Neurologic: no gross focal deficits Psych: calm, and cooperative - Constitutional Vitals: Temp Pulse Resp BP Pulse Ox 97.8 F 74 16 155/94 98 03/30/19 13:26 03/30/19 13:26 03/30/19 13:26 03/30/19 13:26 03/30/19 13:26 General appearance: Present: no acute distress, well-nourished Results - Labs CBC & Chem 7: 03/30/19 00:27 03/28/19 02:09 Labs: Laboratory Last Values WBC 11.8 K/mm3 (4.5-11.0) H 03/30/19 00:27 RBC 4.91 M/mm3 (3.65-5.03) 03/30/19 00:27 Hgb 12.7 gm/dl (11.8-15.2) 03/30/19 00:27 Hct 39.0 % (35.5-45.6) 03/30/19 00:27 MCV 79 fl (84-94) L 03/30/19 00:27 MCH 26 pg (28-32) L 03/30/19 00:27 MCHC 33 % (32-34) 03/30/19 00:27 RDW 14.6 % (13.2-15.2) 03/30/19 00:27 Plt Count 317 K/mm3 (140-440) 03/30/19 00:27 Lymph % (Auto) 25.4 % (13.4-35.0) 03/30/19 00:27 [place] % (Auto) 8.2 % (0.0-7.3) H 03/30/19 00:27 Eos % (Auto) 1.0 % (0.0-4.3) 03/30/19 00:27 Baso % (Auto) 0.4 % (0.0-1.8) 03/30/19 00:27 Lymph # 3.0 K/mm3 (1.2-5.4) 03/30/19 00:27 [place] # 1.0 K/mm3 (0.0-0.8) H 03/30/19 00:27 Eos # 0.1 K/mm3 (0.0-0.4) 03/30/19 00:27 Baso # 0.0 K/mm3 (0.0-0.1) 03/30/19 00:27 Seg Neutrophils % 65.0 % (40.0-70.0) 03/30/19 00: Seg Neutrophils # 7.6 K/mm3 (1.8-7.7) 03/30/19 00:27 ESR 15 mm/Hr (0-20) 03/30/19 00:27 Sodium 136 mmol/L (137-145) L 03/28/19 02:09 Potassium 3.9 mmol/L (3.6-5.0) 03/28/19 02:09 Chloride 99.8 mmol/L (98-107) 03/28/19 02:09 Carbon Dioxide 24 mmol/L (22-30) 03/28/19 02:09 16 mmol/L 03/28/19 02:09 BUN 10 mg/dL (9-20) 03/28/19 02:09 0.7 mg/dL (0.8-1.5) L 03/28/19 02:09 Estimated GFR > 60 ml/min 03/28/19 02:09 14 % 03/28/19 02:09 Glucose 274 mg/dL (75-100) H 03/28/19 02:09 POC Glucose 138 (70-105) H 03/30/19 08:10 10.8 % (4-6) H 03/28/19 02:09 Calcium 9.3 mg/dL (8.4-10.2) 03/28/19 02:09 1.90 mg/dL (0.00-1.30) H 03/30/19 14:03 Vancomycin Trough 15.9 ug/mL (5.0-20.0) 03/29/19 22:28 Active Medications - Current Medications Current Medications: Generic Name Dose Route Start Last Admin Trade Name Freq PRN Reason Stop Dose Admin Acetaminophen 650 mg 03/27/19 22:44 Tylenol PO Q4H PRN Pain MILD(1-3)/Fever >100.5/CAMPOS Dextrose 50 ml 03/27/19 22:44 D50w (25gm) Syringe IV PRN PRN Hypoglycemia Enoxaparin Sodium 40 mg 03/28/19 10:00 03/30/19 13:14 Lovenox SUB-Q 40 mg QDAY@1000 PAMELA Administration Glipizide 10 mg 03/29/19 12:00 03/30/19 09:19 Glucotrol Xl PO 10 mg QDDIAB PAMELA Administration Sodium Chloride 1,000 mls @ 100 mls/hr 03/27/19 23:00 03/29/19 17:30 Nacl 0.9% 1000 Ml IV 100 mls/hr DIRECT PAMELA Administration Cefepime HCl 2 gm in 100 mls @ 200 mls/hr 03/29/19 22:00 03/30/19 14:11 Maxipime/Ns 2 Gm/100 Ml IV 200 mls/hr Q8HR PAMELA Administration Protocol Metronidazole 500 mg in 100 mls @ 100 mls/hr 03/29/19 22:00 03/30/19 14:11 Flagyl 500 Mg/100 Ml IV 100 mls/hr Q8HR PAMELA Administration Protocol Vancomycin HCl 2,000 mg/ 540 mls @ 250 mls/hr 03/30/19 05:00 03/30/19 05:23 Sodium Chloride IV 250 mls/hr 0500,1700 PAMELA Administration Insulin Human Lispro 0 unit 03/28/19 07:30 03/30/19 14:11 Humalog SUB-Q 3 unit ACHS PAMELA Administration Protocol Metformin HCl 500 mg 03/29/19 17:00 03/30/19 09:19 Glucophage PO 500 mg BIDDIAB PAMELA Administration Ondansetron HCl 4 mg 03/27/19 22:44 Zofran IV Q8H PRN Nausea And Vomiting Oxycodone/Acetaminophen 1 tab 03/27/19 22:44 Percocet 5/325 PO Q4H PRN Pain, Moderate (4-6) Sodium Chloride 10 ml 03/28/19 10:00 03/30/19 13:14 Sodium Chloride Flush Syringe 10 Ml IV 10 ml BID PAMELA Administration Sodium Chloride 10 ml 03/27/19 22:44 Sodium Chloride Flush Syringe 10 Ml IV PRN PRN LINE FLUSH Nutrition/Malnutrition Assess - Dietary Evaluation Nutrition/Malnutrition Findings: Nutrition Notes Start: 03/28/19 14:15 Freq: Status: Active Protocol: Document 03/28/19 14:15 RM (Rec: 03/28/19 14:23 RM [id number]) Nutrition Notes Need for Assessment generated from: MD Order,Education Initial or Follow up Assessment Current Diagnosis Diabetes Other Pertinent Diagnosis Diabetic foot infection, new onset DM Current Diet Consisent CHO Labs/Tests A1c 10.8 Pertinent Medications Reviewed Height 5 ft 8 in Weight 148.5 kg [place] Body Weight (kg) 70.00 BMI 49.8 Subjective/Other Information Consulted for DM diet education. Pt stated that his appetite is poor but that he knows he needs to eat so he eats all of his meals. Pt stated he had not been previously educated. Reviewed DM diet education. Gave handout. Burn Absent Trauma Absent #2 Nutrition Diagnosis Increased nutrient needs ( specify in comment below) Comments: glutamine, arginine Etiology wound healing As Evidenced by Signs and Symptoms diabetic foot infection #1 Nutrition Diagnosis Food and nutrition-related knowledge deficit Etiology lack of prior education As Evidenced by Signs and Symptoms no prior knowledge of need for food and nutrition recommendations Is patient on ventilator? No Is Patient Ambulatory and/or Out of Bed Yes REE-([facility]. Jeor-ambulatory/OOB) [ 3190.850 NUTR.MSJOOB] Kcal/Kg value to use for calculation 18 Approximate Energy Requirements Using 2673 kcal/Kg Calculation Used for Recommendations Kcal/kg Additional Notes Protein Needs:84-105g (1.2-1. 5g/kg IBW) Fluid Needs: 1 ml/kcal Nutrition Intervention Change Diet Order: continue current Add Supplement/Snack (indicate name/kcal Juan Jose BID /protein ) Provides kCal: 190 Provides Protein (gm) 5 Teaching Recipient Patient Learning Readiness Good Teaching Methods Discussion,Handout Response to Teaching Verbalize understanding Education Handouts Provided Carbohydrate counting for people with diabetes Barriers to Learning No Barriers RD phone number provided Yes Patient aware of follow up options Yes Goal #1 Juan Jose tolerance Anticipated Discharge Needs: Consistent CHO Follow-Up By: 03/31/19 Additional Comments Follow Juan Jose tolerance/intake
[2019-03-31] MEDS: VANCOMYCIN 2,000 MG in NACL 0.9% 500 ML 500 ML IV SCH ×2 (04:09→17:34)
[2019-03-31] MEDS: MAXIPIME/NS 2 GM/100 ML 2 GM/100 ML BAG IV SCH ×2 (06:02→13:39)
[2019-03-31] MEDS: FLAGYL 500 MG/100 ML 500 MG/100 ML BAG IV SCH ×2 (06:03→16:21)
--- NOTE | 2019-03-31 09:12 | Progress Note ---
Assessment and Plan Cultures: 03/28/19 Blood: no growth 03/29/19 Right Great toe: Proteus, Staph aureus 03/29/19 Left Great toe : Proteus, Staph aureus A/P: 23-year-old male with no significant past medical history that presents to the ED on 03/27/19 with complaints of wounds to his bilateral great toes that began 6 months ago. He states that he initially hit the right great toes on the wall 6 months ago. He has been using peroxide on the wound, however it has not healed. He subsequently hit the left great toe on the curb and has been having bloody discharge on the toe with increased swelling. Upon further evaluation, he complains of polyuria, polydypsia and weight gain. 1. Leukocytois : Continuing. Etiology most likely diabetic bilateral foot infection.. No fevers. Blood cultures show no growth thus far. U/A not done.Will do broad spectrum antibiotics given chronicity of wounds. ESR 15. CRP 1.90. Currently being treated with Vancomycin, Cefepime and Flagyl . 2. Diabetic bilateral foot infection: Bilateral foot xray shows Mild spuring at the insertion of the Achilles tendon on the calcaneus bilaterally. Soft tissue swelling involving both great toes, right greater than the left . MRI right foot shows Subcutaneous cellulitis in the distal aspect of the great toe. No evidence of fluid collection or osteomyelitis. MRI left foot shows Mild subcutaneous cellulitis in the distal great toe without underlying osteomyelitis or focal fluid collection. Right/Left wound culture GNR, Staph aureus. 3. Newly diagnosed Type 2 DM: Educated about newly diagnosed diabetes. On admission HbA1C 10.8. Recommend tight glycemic control. 4. Morbid obesity: Recommendations: -Continue Vancomycin PK dosing, D4 -Continue Cefepime 2 gms IV every 8 hours, D3 -Continue Flagyl 500 mg IV every 8 hours, D3 -CBC ordered for tomorrow -Anticipate discharge on Keflex 750mg PO QID for 14 days. (prescription on the chart) -Wound care outpatient -follow up ID clinic in 2 weeks (sent to collection supervisor) [facility] M: [phone] O:[phone] Subjective Date of service: 03/31/19 Interval history: Patient seen and examined. Reports no right/left toe pain. No fevers. Objective - Exam Narrative Exam: Constitutional: Alert, cooperative. No acute distress Head, Ears, Nose: Normocephalic, atraumatic. External ears, nose normal Eyes: Conjunctivae/corneas clear. No icterus. No ptosis. Neck: Supple, no meningeal signs Oral: dentition good. No thrush Cardiovascular: S1, S2 normal. Respiratory: Good air entry, clear to auscultation bilaterally GI: Soft, non-tender; bowel sounds normal. No peritoneal signs Musculoskeletal: wounds to bilateral great toes, +dressing. C/D/I Skin: same as above. Hem/Lymphatic: No palpable cervical or supraclavicular nodes. No lymphangitis Psych: Mood ok. Affect normal Neurological: Awake, alert, oriented. - Constitutional Vitals: Vital Signs Temp Pulse Resp BP Pulse Ox 98.4 F 81 20 140/73 97 03/31/19 04:48 03/31/19 04:48 03/31/19 04:48 03/31/19 04:48 03/31/19 04:48 Temperature -Last 24 Hours Temperature 98.4 F Temperature 97.5 F Temperature 97.9 F Temperature 97.8 F - Labs CBC & Chem 7: 03/30/19 00:27 03/28/19 02:09 Labs: Abnormal lab results 03/30/19 03/30/19 03/30/19 Range/Units 13:31 14:03 16:29 POC Glucose 229 H 207 H (70-105) C-Reactive Protein 1.90 H (0.00-1.30) mg/dL 03/30/19 03/31/19 Range/Units 23:25 08:05 POC Glucose 218 H 152 H (70-105) C-Reactive Protein (0.00-1.30) mg/dL
[2019-03-31] MEDS: GLUCOPHAGE PO SCH ×2 (09:23→16:21)
[2019-03-31] MEDS: LOVENOX SUB-Q SCH (09:23)
[2019-03-31] MEDS: HumaLOG SUB-Q SCH ×3 (09:24→18:35)
[2019-03-31] MEDS: SODIUM CHLORIDE FLUSH SYRINGE 10 ML IV SCH (09:29)
[2019-03-31] MEDS: GLUCOTROL XL PO SCH (10:26)
[2019-03-31 15:59] VITALS: BP 155/75
--- NOTE | 2019-03-31 17:52 | Discharge Summary ---
Providers - Providers Date of Admission: 03/27/19 22:44 Attending physician: BHAVIK CRAVEN MD 03/27/19 22:44 Consult to Physician [CONS] Routine Comment: Consulting Provider: YARIEL AGUILA Physician Instructions: Reason For Exam: dm foot infection 03/27/19 23:02 Consult to Dietitian/Nutrition [CONS] Routine Physician Instructions: Reason For Exam: Reason for Consult: Diet education 03/28/19 07:53 Consult to Wound/ET Nurse [CONS] Routine Reason For Exam: wound eval Primary care physician: [employer]ICE [employer] Hospitalization Condition: Stable Hospital course: 23-year-old man with type 2 diabetes who presents with wounds to bilateral toes. He states that he thinks/stubbed his big toes multiple times, now has increased drainage and malodorous. The patient has not had a primary care doctor in a long time Diabetic foot infection/bilateral Infectious disease consult appreciated, continue antibiotics, follow-up francisco javier ateral duplex scan of the lower extremities, MRI neg for osteomyelitis, being dc on oral bax new onset Type 2 diabetes Hemoglobin A1c 10.8, optimize oral meds, with improvement in blood glc Morbid obesity Patient will benefit from weight loss program and acute issues have been managed Preventative health counseling performed for greater than 17 minutes DVT prophylaxis with Lovenox Disposition: [id number] HOME UNDER HOME [facility] Time spent for discharge: 33 mins Core Measure Documentation - Palliative Care Palliative Care/ Comfort Measures: Not Applicable - Core Measures Any of the following diagnoses?: none Exam - Physical Exam Narrative exam: General.: Appears well, no distress, nontoxic HEENT: Moist mucous membranes, extraocular muscles intact, no lymphadenopathy Neck: supple Cardiac: S1-S2 heard Lungs: clear to auscultation bilaterally Abdomen: soft , nontender, nondistended, bowel sounds positive Extremities: Bilateral big to ulcers, with foul-smelling discharge Skin: no rash or lesions Neurologic: no gross focal deficits Psych: calm, and cooperative - Constitutional Vitals: Temp Pulse Resp BP Pulse Ox 98.6 F 78 20 155/75 98 03/31/19 15:29 03/31/19 15:29 03/31/19 15:29 03/31/19 15:29 03/31/19 15:29 Plan Follow up with: PRIMARY MD DEYVI [Primary Care Provider] - 2-3 Days Prescriptions: metFORMIN [Glucophage] 500 mg PO BIDDIAB #60 tablet glipiZIDE XL [Glucotrol Xl] 10 mg PO QDDIAB #60 tablet Cephalexin [Keflex] 750 mg PO QID 14 Days #56 capsule oxyCODONE /ACETAMINOPHEN [Percocet 5/325 mg] 1 tab PO Q4H PRN #30 tablet PRN Reason: Pain, Moderate (4-6)
== END 2019-03-31 21:24 | disposition home health service (06) | DRG 638 ==
LOC: ED 16:51 → 3A 22:44
PROVIDERS: ADMIT Internal Medicine; ATTEND Internal Medicine
DX: E11.628 Type 2 diabetes mellitus with other skin complications (principal); Z68.43 Body mass index [BMI] 50.0-59.9, adult; E11.65 Type 2 diabetes mellitus with hyperglycemia; D72.829 Elevated white blood cell count, unspecified; S91.109A Unspecified open wound of unspecified toe(s) without damage to nail, initial encounter; E66.01 Morbid (severe) obesity due to excess calories; L03.032 Cellulitis of left toe; Z79.84 Long term (current) use of oral hypoglycemic drugs
CPT/HCPCS: 36415; 80048; 80202; 82962; 83036; 85025; 85652; 86140; 87040; 87076; 87116; 87186; 96365; 96372; G0378; A9577; J0692; J1650; J1815; J3370; J7030; J7040